=== PATIENT | female | born 2000 | race Caucasian/White ===

== ENCOUNTER 2020-08-13 18:54 | Emergency (ER) | payer OTHER ==
[~2020-08-13] VITALS: Ht 167.6 cm; Wt 77.2 kg
[2020-08-13] MEDS ORDERED: ASPIRIN CHEWABLE 81 MG TABLET. PO ONE (19:15)
--- NOTE | 2020-08-13 19:41 | PHYS DOC ---
Past History Past Medical History: Anxiety, Asthma, Bipolar, Other Additional Past Medical Histor: Cardiac Past Surgical History: Other Additional Past Surgical Histo: EGD Alcohol Use: None General Adult EDM: Chief Complaint: CHEST PAIN HPI: HPI: 20-year-old female presents with chest discomfort. Patient tells me that she had an EGD with esophageal dilation yesterday. She has had these before but not had pain like this. The pain is a sharp cramping sensation in her central chest. At its worst it is a 7 out of 10. When she tries to drink liquids it hurts worse and tends to radiate up. She denies shortness of breath or diaphoresis. She came in an abundance of caution. She has had no hematemesis. She denies any drug use. She denies fever chills. She has no other complaints at this time. Review of Systems: Review of Systems: Constitutional: Denies fever or chills Eyes: Denies change in visual acuity HENT: Denies nasal congestion or sore throat Respiratory: Denies cough or shortness of breath Cardiovascular: Chest pain GI: Denies abdominal pain, nausea, vomiting, bloody stools or diarrhea : Denies dysuria Musculoskeletal: Denies back pain or joint pain Integument: Denies rash Neurologic: Denies headache, focal weakness or sensory changes Endocrine: Denies polyuria or polydipsia Lymphatic: Denies swollen glands Psychiatric: Denies depression or anxiety Heart Score: HEART Score for Chest Pain: HEART Score for Chest Pain Response (Comments) Value History Slighlty/Non-Suspicious 0 ECG Normal 0 Age < 45 0 Risk Factors No Risk Factors 0 Troponin < Normal Limit 0 Total 0 Risk Factors: Risk Factors: DM, Current or recent (<one month) smoker, HTN, HLP, family history of CAD, obesity. Risk Scores: Score 0 - 3: 2.5% MACE over next 6 weeks - Discharge Home Score 4 - 6: 20.3% MACE over next 6 weeks - Admit for Clinical Observation Score 7 - 10: 72.7% MACE over next 6 weeks - Early Invasive Strategies Current Medications: Current Meds: Current Medications Medications (Trade) Dose Ordered Sig/Allan Start Time Stop Time Status Last Admin Dose Admin Aspirin (Aspirin Chewable) 324 mg 1X ONCE 08/13/20 19:15 08/13/20 19:16 UNV Allergies: Allergies: Allergies Coded Allergies Type Severity Reaction Last Updated Verified latex Allergy Unknown 08/13/20 Yes Physical Exam: PE: Constitutional: Well developed, well nourished, no acute distress, non-toxic appearance. [] HENT: Normocephalic, atraumatic, bilateral external ears normal, oropharynx moist, no oral exudates, nose normal. [] Eyes: PERRLA, EOMI, conjunctiva normal, no discharge. [] Neck: Normal range of motion, no tenderness, supple, no stridor. [] Cardiovascular: Heart rate regular rhythm, no murmur [] Lungs & Thorax: Bilateral breath sounds clear to auscultation [] Abdomen: Bowel sounds normal, soft, no tenderness, no masses, no pulsatile masses. [] Skin: Warm, dry, no erythema, no rash. [] Back: No tenderness, no CVA tenderness. [] Extremities: No tenderness, no cyanosis, no clubbing, ROM intact, no edema. [] Neurologic: Alert and oriented X 3, normal motor function, normal sensory function, no focal deficits noted. [] Psychologic: Affect normal, judgement normal, mood normal. [] Current Patient Data: Vital Signs: Vital Signs Date Time Temp Pulse Resp B/P (MAP) Pulse Ox O2 Delivery O2 Flow Rate FiO2 08/13/20 19:11 97.8 60 14 127/78 (94) 100 Room Air EKG: EKG: Sinus rhythm, rate 77, normal axis, no ST elevations or depressions. [] Radiology/Procedures: Radiology/Procedures: [] Impressions: INDICATION: Reason: CP / Spl. Instructions: / History: COMPARISON: None. FINDINGS: Single view of chest obtained. No definite focal airspace consolidation. Cardiac silhouette is unremarkable. No gross osseous destructive lesion. IMPRESSION: * No focal airspace consolidation. Electronically signed by: Jaziel Mcgovern MD (08/13/2020 7:42 PM) [id number] DICTATED AND SIGNED BY: JAZIEL MCGOVERN MD DATE: 08/13/201941 CC: ALLEN ZELAYA DO; NBA WHYTE APRN ~ Course & Med Decision Making: Course & Med Decision Making Pertinent Labs and Imaging studies reviewed. (See chart for details) The patient's EKG is unremarkable. Her chest x-ray is unremarkable. Her labs are unremarkable. Her troponin is negative. I believe her discomfort was due to her recent EGD. I have given her [place] 5/325. I will discharge her with a prescription for the same. She is stable for discharge at this time. Patient is in agreement with discharge. [] Dragon Disclaimer: Dragon Disclaimer: This electronic medical record was generated, in whole or in part, using a voice recognition dictation system. Departure Departure: Impression: Primary Impression: Chest pain Qualified Codes: R07.89 - Other chest pain Disposition: HOME/RESIDENCE PRIOR TO ADM Condition: STABLE Referrals: NBA WHYTE APRN (PCP) Patient Instructions: Chest Pain (Nonspecific), [id number] Scripts Hydrocodone Bit/Acetaminophen (NORCO 5-325 TABLET) 1 Each Tablet 1 TAB PO PRN Q6HRS PRN for PAIN, #10 TAB 0 Refills Prov: ALLEN ZELAYA DO 08/13/20 ALLEN ZELAYA DO Aug 13, 2020 19:41
[2020-08-13] MEDS ORDERED: HYDROcodone/APAP 5/325MG 1 TAB TABLET PO ONE (19:45)
--- NOTE | 2020-08-13 19:45 | RAD ---
INDICATION: Reason: CP / Spl. Instructions: / History: COMPARISON: None. FINDINGS: Single view of chest obtained. No definite focal airspace consolidation. Cardiac silhouette is unremarkable. No gross osseous destructive lesion. IMPRESSION: * No focal airspace consolidation. Electronically signed by: Roderick Mcgovern MD (08/13/2020 7:42 PM) [id number]
[2020-08-13 19:56] LABS: BASO # 0.1 x10^3/uL (0.0-0.2); BASO % 1 % (0-3); EOS # 0.5 x10^3/uL (0.0-0.7); EOS % 7 % (0-3); HEMATOCRIT 40.4 % (36.0-47.0); HEMOGLOBIN 13.5 g/dL (12.0-15.5); LYMPH # 2.6 x10^3/uL (1.0-4.8); LYMPH % 36 % (24-48); MEAN CORPUSCULAR HEMOGLOBIN 30 pg (25-35); MEAN CORPUSCULAR HGB CONC 33 g/dL (31-37); MEAN CORPUSCULAR VOLUME 90 fL (79-100); MONO # 0.4 x10^3/uL (0.0-1.1); MONO % 6 % (0-9); NEUT # 3.5 x10^3uL (1.8-7.7); NEUT % 50 % (31-73); PLATELET COUNT 250 x10^3/uL (140-400); RED BLOOD COUNT 4.48 x10^6/uL (3.50-5.40); RED CELL DISTRIBUTION WIDTH 12.9 % (11.5-14.5); WHITE BLOOD COUNT 7.1 x10^3/uL (4.0-11.0)
[2020-08-13 20:04] LABS: CALCIUM 9.3 mg/dL (8.5-10.1); CREATININE 0.8 mg/dL (0.6-1.0); GFR 91.4; POTASSIUM 3.5 mmol/L (3.5-5.1)
[2020-08-13 20:09] LABS: ALBUMIN 3.9 g/dL (3.4-5.0); TOTAL BILIRUBIN 0.5 mg/dL (0.2-1.0); TOTAL PROTEIN 7.7 g/dL (6.4-8.2)
[2020-08-13 21:02] LABS: BARBITURATES NEG (NEG); BENZODIAZEPINES NEG (NEG); CANNABINOIDS NEG (NEG); COCAINE NEG (NEG); METHADONE NEG (NEG); OPIATES NEG (NEG); PHENCYCLIDINE NEG (NEG)
[2020-08-13 21:06] LABS: AMPHETAMINE/METHAMPHETAMINE NEG (NEG)
[2020-08-13 21:08] LABS: CLARITY,URINE CLEAR; COLOR,URINE STRAW; GLUCOSE,URINE NEG (NEG)
[2020-08-13 21:09] LABS: BACTERIA,URINE 0 /HPF (0-FEW); BILIRUBIN,URINE NEG (NEG); NITRITE,URINE NEG (NEG); RBC,URINE 0 /HPF (0-2); SQUAMOUS EPITHELIAL CELL,UR FEW /LPF; UROBILINOGEN,URINE 0.2 mg/dL (0.2 mg/dL); WBC,URINE 0 /HPF (0-4)
[2020-08-13] MEDS ORDERED: HYDR-3165 PO (21:16)
[2020-08-13 21:24] VITALS: BP 123/76
--- NOTE | 2020-08-14 01:51 | EKG ---
[address] [address] Test Date: 2020-08-13 Test Time: 19:14:56 Pat Name: ALIZE RANDALL Department: Room: Gender: F [employer] Dean: : 2000 Requested By: ALLEN ZELAYA Order Number: [id number] Reading MD: Measurements Intervals [place] Rate: 77 P: 47 ID: [id number] QRS: 13 QRSD: 80 T: 27 QT: 358 QTc: 407 Interpretive Statements SINUS RHYTHM INCOMPLETE RIGHT BUNDLE BRANCH BLOCK OTHERWISE NORMAL ECG RI6.02 No previous ECG available for comparison
== END 2020-08-13 21:24 | disposition home or self-care (01) ==
LOC: ER 18:54
DX: R07.89 Other chest pain (principal); J45.909 Unspecified asthma, uncomplicated; F41.9 Anxiety disorder, unspecified; F31.9 Bipolar disorder, unspecified; Z91.040 Latex allergy status
CPT/HCPCS: 36415; 71045; 80053; 80307; 81001; 84484; 85025; 93005; 99285

== ENCOUNTER 2021-03-12 01:46 | Emergency (ER) | payer OTHER ==
[~2021-03-12] VITALS: Ht 167.6 cm; Wt 78.2 kg
[2021-03-12 01:46] VITALS: BP 123/76
[~2021-03-12 01:46] MED LIST: HYDR-3165 PO
--- NOTE | 2021-03-12 02:12 | PHYS DOC ---
Past History Past Medical History: Anxiety, Asthma, Bipolar, Other Additional Past Medical Histor: Cardiac Past Surgical History: Other Additional Past Surgical Histo: EGD Alcohol Use: None General Adult EDM: Chief Complaint: ABDOMINAL PAIN HPI: HPI: 20-year-old female presents with intermittent epigastric pain. Patient has noticed the pain happens after she eats several times in the last 2 weeks. She comes in tonight because she was asleep and she woke up with the pain about 6 hours after eating. She has not noticed a pattern with any particular foods. She has been eating less as a result. Patient has GERD at baseline which is well controlled with pantoprazole. She has never had abdominal surgery. She denies fever or chills. Review of Systems: Review of Systems: Constitutional: Denies fever or chills Eyes: Denies change in visual acuity HENT: Denies nasal congestion or sore throat Respiratory: Denies cough or shortness of breath Cardiovascular: Denies chest pain or edema GI: Epigastric abdominal pain, nausea. Denies vomiting, bloody stools or diarrhea : Denies dysuria Musculoskeletal: Denies back pain or joint pain Integument: Denies rash Neurologic: Denies headache, focal weakness or sensory changes Endocrine: Denies polyuria or polydipsia Lymphatic: Denies swollen glands Psychiatric: Denies depression or anxiety Current Medications: Current Meds: Current Medications Medications (Trade) Dose Ordered Sig/Allan Start Time Stop Time Status Last Admin Dose Admin Sodium Chloride 1,000 ml @ 1,000 mls/hr 1X ONCE 03/12/21 02:15 03/12/21 03:14 Allergies: Allergies: Allergies Coded Allergies Type Severity Reaction Last Updated Verified latex Allergy Unknown 08/13/20 Yes Physical Exam: PE: Constitutional: Well developed, well nourished, no acute distress, non-toxic appearance. [] HENT: Normocephalic, atraumatic, bilateral external ears normal, oropharynx moist, no oral exudates, nose normal. [] Eyes: PERRLA, EOMI, conjunctiva normal, no discharge. [] Neck: Normal range of motion, no tenderness, supple, no stridor. [] Cardiovascular:Heart rate regular rhythm, no murmur [] Lungs & Thorax: Bilateral breath sounds clear to auscultation [] Abdomen: Bowel sounds normal, soft, no tenderness, no masses, no pulsatile masses. [] Skin: Warm, dry, no erythema, no rash. [] Back: No tenderness, no CVA tenderness. [] Extremities: No tenderness, no cyanosis, no clubbing, ROM intact, no edema. [] Neurologic: Alert and oriented X 3, normal motor function, normal sensory function, no focal deficits noted. [] Psychologic: Affect normal, judgement normal, mood normal. [] EKG: EKG: [] Radiology/Procedures: Radiology/Procedures: [] Impressions: CT abdomen pelvis with contrast dated 03/12/2021. No comparison available. CLINICAL INDICATION: Epigastric pain. TECHNIQUE: Contiguous axial imaging the abdomen pelvis performed after the administration of 75 cc Omnipaque 300. One or more of the following individualized dose reduction techniques were utilized for this examination: 1. Automated exposure control 2. Adjustment of the mA and/or kV according to patient size 3. Use of iterative reconstruction technique. FINDINGS: Liver, spleen, pancreas, adrenal glands, gallbladder and kidneys are unremarkable. No hydronephrosis. Unopacified GI tract normal in caliber and contour. No focal bowel wall thickening. No inflammatory stranding in the mesentery. No ascites or lymphad enopathy. Appendix normal in caliber. Images of pelvis show nondistended urinary bladder. Uterus and adnexa are unremarkable. Small amount of free pelvic fluid. No pelvic lymphadenopathy. There is a 2.3 cm left ovarian cyst. Bone windows show no acute finding. IMPRESSION: 1. No acute abnormality of abdomen or pelvis. Normal appendix. 2. Small left ovarian cyst versus dominant follicle. 3. Trace amount of free pelvic fluid, nonspecific. Electronically signed by: Damion Sosa MD (03/12/2021 3:03 AM) [facility] [place] DICTATED AND SIGNED BY: DAMION SOSA MD DATE: 03/12/21 0300 CC: ALLEN ZELAYA DO; PCP,NO ~MTH0 0 Heart Score: C/O Chest Pain: N/A Risk Factors: Risk Factors: DM, Current or recent (<one month) smoker, HTN, HLP, family history of CAD, obesity. Risk Scores: Score 0 - 3: 2.5% MACE over next 6 weeks - Discharge Home Score 4 - 6: 20.3% MACE over next 6 weeks - Admit for Clinical Observation Score 7 - 10: 72.7% MACE over next 6 weeks - Early Invasive Strategies Course & Med Decision Making: Course & Med Decision Making Pertinent Labs and Imaging studies reviewed. (See chart for details) CBC is unremarkable. The patient CT scan of the abdomen and pelvis does not show any significant findings. See official read for more details. The patient's other labs are unremarkable. Based on the story, this seems likely to be related to her gallbladder. I have discussed this with the patient. There were no obvious gallstones on CT. Outpatient ultrasound could be considered as well as a HIDA scan for gallbladder function. Patient states verbal understanding. She is stable for discharge at this time. [] Dragon Disclaimer: Dragon Disclaimer: This electronic medical record was generated, in whole or in part, using a voice recognition dictation system. Departure Departure: Impression: Primary Impression: Epigastric abdominal pain Disposition: HOME / SELF CARE / HOMELESS Condition: STABLE Referrals: PCP,NO (PCP) Patient Instructions: Abdominal Pain, [id number], Gallbladder Nuclear Scanning Scripts Hydrocodone/Acetaminophen (Hydrocodone-Acetamin 5-325 mg) 1 Each Tablet 1 EACH PO Q4-6HRS PRN for PAIN, #10 TAB Prov: ALLEN ZELAYA DO 03/12/21 ALLEN ZELAYA DO Mar 12, 2021 02:12
[2021-03-12] MEDS ORDERED: IV NORMAL SALINE 1,000ML 1,000 ML IV ONE (02:15)
[2021-03-12] MEDS ORDERED: KETOROLAC 30 MG/ML VIAL. IVP ONE (02:15)
[2021-03-12] MEDS ORDERED: ONDANSETRON PF 4 MG/2 ML VIAL. IVP ONE (02:15)
[2021-03-12] MEDS ORDERED: IOHEXOL 300 MG/ML 75 ML VIAL. IV ONE (02:30)
[2021-03-12] MEDS ORDERED: CONTRAST GIVEN. MC PRN (02:30)
[2021-03-12 03:04] LABS: BASO # 0.1 x10^3/uL (0.0-0.2); BASO % 1 % (0-3); EOS # 2.5 x10^3/uL (0.0-0.7); EOS % 27 % (0-3); HEMATOCRIT 35.5 % (36.0-47.0); LYMPH # 2.1 x10^3/uL (1.0-4.8); LYMPH % 23 % (24-48); MEAN CORPUSCULAR HEMOGLOBIN 30 pg (25-35); MEAN CORPUSCULAR HGB CONC 34 g/dL (31-37); MEAN CORPUSCULAR VOLUME 89 fL (79-100); MONO # 0.7 x10^3/uL (0.0-1.1); MONO % 7 % (0-9); NEUT % 42 % (31-73); PLATELET COUNT 175 x10^3/uL (140-400); RED BLOOD COUNT 3.99 x10^6/uL (3.50-5.40); RED CELL DISTRIBUTION WIDTH 13.1 % (11.5-14.5); WHITE BLOOD COUNT 9.3 x10^3/uL (4.0-11.0)
--- NOTE | 2021-03-12 03:05 | RAD ---
CT abdomen pelvis with contrast dated 03/12/2021. No comparison available. CLINICAL INDICATION: Epigastric pain. TECHNIQUE: Contiguous axial imaging the abdomen pelvis performed after the administration of 75 cc Omnipaque 300 . One or more of the following individualized dose reduction techniques were utilized for this examinat ion: 1. Automated exposure control 2. Adjustment of the mA and/or kV according to patient size 3. Use of iterative reconstruction technique. FINDINGS: Liver, spleen, pancreas, adrenal glands, gallbladder and kidneys are unremarkable. No hydronephrosis. Unopacified GI tract normal in caliber and contour. No focal bowel wall thickening. No inflammatory s tranding in the mesentery. No ascites or lymphadenopathy. Appendix normal in caliber. Images of pelvis show nondistended urinary bladder. Uterus and adnexa are unremarkable. Small amount of free pelvic fluid. No pelvic lymphadenopathy. There is a 2.3 cm left ovarian cyst. Bone windows show no acute finding. IMPRESSION: 1. No acute abnormality of abdomen or pelvis. Normal appendix. 2. Small left ovarian cyst versus dominant follicle. 3. Trace amount of free pelvic fluid, nonspecific. Electronically signed by: Damion Sosa MD (03/12/2021 3:03 AM) [facility]
[2021-03-12 03:25] LABS: CALCIUM 8.8 mg/dL (8.5-10.1); CREATININE 0.8 mg/dL (0.6-1.0); GFR 91.4; POTASSIUM 3.9 mmol/L (3.5-5.1)
[2021-03-12 03:31] LABS: ALBUMIN 3.4 g/dL (3.4-5.0); TOTAL BILIRUBIN 1.2 mg/dL (0.2-1.0); TOTAL PROTEIN 6.7 g/dL (6.4-8.2)
[2021-03-12] MEDS ORDERED: HYDR-2759 PO (03:36)
== END 2021-03-12 04:04 | disposition home or self-care (01) ==
LOC: ER 01:46
DX: R10.13 Epigastric pain (principal); R11.0 Nausea; F41.9 Anxiety disorder, unspecified; J45.909 Unspecified asthma, uncomplicated; F31.9 Bipolar disorder, unspecified; K21.9 Gastro-esophageal reflux disease without esophagitis; Z91.040 Latex allergy status
CPT/HCPCS: 36415; 74177; 80053; 83690; 85025; 96361; 96374; 96375; 99285; J1885; J2405; J7030; Q9967